=== PATIENT | male | born 1945 | race Caucasian/White ===

== ENCOUNTER 2021-06-13 16:27 | Inpatient (IN) ==
[2021-06-13] MEDS ORDERED: NS 0.9% 1000 ml BAG 1,000 ML IV ONE (17:21)
[2021-06-13 17:26] LABS: ABS Basophils 0.1 10^3/ul (0-0.2); ABS Eosinophils 0.1 10^3/ul (0-0.6); ABS Lymphocytes 1.1 10^3/ul (1.0-4.8); ABS Monocytes 0.7 10^3/ul (0-0.8); ABS Neutrophils 7.6 10^3/ul (1.5-7.7); Eosinophil % 1.5 %; Hematocrit 41 % (42-52); Lymphocyte % 11.5 %; Mean Corpuscular HGB Conc 34 g/dL (31-36); Mean Corpuscular Hemoglobin 31 pg (27-31); Mean Corpuscular Volume 92 fL (80-94); Mean Platelet Volume 8.1 fL (7.4-10.4); Platelet Count 196 10^3/uL (150-450); Red Blood Count 4.45 10^6 /uL (4.18-5.48); Red Cell Distribution Width 14 % (10-15); White Blood Count 9.6 10^3/uL (3.5-10.8)
[2021-06-13 17:42] LABS: ALT 15 U/L (7-52); Albumin 4.2 g/dL (3.2-5.2); Albumin/Globulin Ratio 1.7 (1-3); Alkaline Phosphatase 45 U/L (35-149); Blood Urea Nitrogen 12 mg/dL (6-24); CO2 Carbon Dioxide 29 mmol/L (22-32); Calcium 9.2 mg/dL (8.6-10.3); Chloride 103 mmol/L (101-111); EGFR African American 80.7 (>60); EGFR Non-African American 66.7 (>60); Globulin 2.5 g/dL (2-4); Glucose 172 mg/dL (70-100); Magnesium 1.9 mg/dL (1.9-2.7); Sodium 137 mmol/L (135-145); Total Protein 6.7 g/dL (6.4-8.9)
[2021-06-13 17:43] LABS: AST 22 U/L (13-39); Anion Gap 5 mmol/L (2-11); Potassium 4.4 mmol/L (3.5-5.0)
[2021-06-13 18:10] LABS: Troponin I 0.38 ng/mL (<0.03)
[2021-06-13] MEDS ORDERED: Metoprolol Tartrate 5 mg VIAL 5 ml VIAL (1 mg/ml) IV ONE (18:14)
[2021-06-13] MEDS ORDERED: nitroGLYCERIN DRIP 25,000 MCG/250 ML BTL IV ONE (18:15)
[2021-06-13 18:20] LABS: Rapid COVID-19 Molecular Undetected (Undetected)
[2021-06-13] MEDS ORDERED: Heparin DRIP 25,000 UNITS BAG 25,000 UNITS/500 ML BAG IV SCH (18:45)
[2021-06-13 18:46] LABS: INR 1.05 (0.86-1.15)
[2021-06-13] MEDS ORDERED: Heparin 5000 UNITS/ML 1 mL VIAL IV SCH (19:00)
[2021-06-13] MEDS ORDERED: Midazolam 5 mg/5 ml VIAL 1 mg/ml 5 ml VIAL (5 mg) ONE (19:10)
[2021-06-13] MEDS ORDERED: nitroGLYCERIN DRIP 25,000 MCG/250 ML BTL ONE (19:11)
[2021-06-13] MEDS ORDERED: Lidocaine 1% VIAL 10 MG/ML VIAL ONE (19:11)
[2021-06-13] MEDS ORDERED: Heparin 2 UNITS/ML 1000 mls 2,000 ML IV ONE (19:11)
[2021-06-13] MEDS ORDERED: fentaNYL 100 mcg/2 ml 50 MCG/ML VIAL ONE (19:11)
[2021-06-13] MEDS ORDERED: Iohexol 350 (CONTRAST) 200 ML MDV IV ONE ×2 (19:12→19:31)
[2021-06-13] MEDS ORDERED: niCARdipine 0.1MG/ML IVPREMIX 20 MG/200 ML BAG IV ONE (19:21)
[2021-06-13] MEDS ORDERED: Esmolol 10 MG/ML IVPREMIX 2,500 MG/250 ML BAG IV ONE (19:24)
[2021-06-13] MEDS ORDERED: Heparin 1,000 UNIT/ML 10 ml (10,000 UNITS) CATHLAB/DIALYSIS ONE ×2 (20:07→20:31)
[2021-06-13] MEDS ORDERED: Atropine 0.1 MG/ML 10 ml SYR (1 mg) ONE (21:02)
[2021-06-13] MEDS ORDERED: NS 0.9% 1000 ml BAG 1,000 ML IV SCH (21:30)
[2021-06-13 23:10] LABS: Creatine Kinase 552 U/L (10-223)
[2021-06-13 23:13] LABS: Troponin I 6.19 ng/mL (<0.03)
[2021-06-13 23:14] LABS: CKMB ng/mL 37.3 ng/mL (0.6-6.3)
[2021-06-13 23:41] LABS: Anion Gap 6 mmol/L (2-11); Blood Urea Nitrogen 10 mg/dL (6-24); CO2 Carbon Dioxide 28 mmol/L (22-32); Chloride 105 mmol/L (101-111); EGFR African American 80.7 (>60); EGFR Non-African American 66.7 (>60); Glucose 98 mg/dL (70-100); Potassium 4.2 mmol/L (3.5-5.0); Sodium 139 mmol/L (135-145)
[2021-06-14] MEDS ORDERED: Nitro 2% OINT (Nitroglycerin) 1 INCH/PAK TOPICAL ONE (01:35)
[2021-06-14 04:38] LABS: ABS Basophils 0.1 10^3/ul (0-0.2); ABS Eosinophils 0.2 10^3/ul (0-0.6); ABS Lymphocytes 1.7 10^3/ul (1.0-4.8); ABS Monocytes 0.9 10^3/ul (0-0.8); ABS Neutrophils 7.3 10^3/ul (1.5-7.7); Eosinophil % 1.6 %; Hematocrit 39 % (42-52); Hemoglobin 13.1 g/dL (14.0-18.0); Lymphocyte % 16.5 %; Mean Corpuscular HGB Conc 34 g/dL (31-36); Mean Corpuscular Hemoglobin 31 pg (27-31); Mean Corpuscular Volume 92 fL (80-94); Mean Platelet Volume 8.1 fL (7.4-10.4); Platelet Count 181 10^3/uL (150-450); Red Cell Distribution Width 13 % (10-15); White Blood Count 10.1 10^3/uL (3.5-10.8)
[2021-06-14 04:53] LABS: Cholesterol 139 mg/dL; Creatine Kinase 597 U/L (10-223); LDL Cholesterol 41 mg/dL; Triglycerides 333 mg/dL
[2021-06-14 04:58] LABS: CKMB ng/mL 41.4 ng/mL (0.6-6.3)
[2021-06-14 05:13] LABS: Troponin I 18.27 ng/mL (<0.03)
[2021-06-14] MEDS ORDERED: Nitro Patch/OINT Remove PATCH TOPICAL ONE (10:00)
[2021-06-14 10:18] LABS: Creatine Kinase 555 U/L (10-223)
[2021-06-14 10:24] LABS: CKMB ng/mL 36.8 ng/mL (0.6-6.3); Troponin I 20.45 ng/mL (<0.03)
[2021-06-15 06:06] LABS: CO2 Carbon Dioxide 23 mmol/L (22-32); Chloride 106 mmol/L (101-111); Sodium 134 mmol/L (135-145)
[2021-06-15 06:12] LABS: Blood Urea Nitrogen 11 mg/dL (6-24); EGFR African American 91.3 (>60); EGFR Non-African American 75.5 (>60); Glucose 112 mg/dL (70-100)
[2021-06-15 06:14] LABS: Anion Gap 5 mmol/L (2-11)
[2021-06-15 11:07] LABS: Phosphorus 2.6 mg/dL (2.5-5.0); Potassium Redraw 4.3 mmol/L (3.5-5.0)
[2021-06-15 11:09] LABS: Magnesium 1.9 mg/dL (1.9-2.7); Potassium 4.3 mmol/L (3.5-5.0)
[2021-06-15] MEDS ORDERED: Magnesium Sulfate IV 1GM/100ML 1 GM/100 ML BAG IV ONE (14:34)
[2021-06-16 04:24] LABS: ABS Basophils 0.1 10^3/ul (0-0.2); ABS Eosinophils 0.4 10^3/ul (0-0.6); ABS Lymphocytes 1.8 10^3/ul (1.0-4.8); ABS Monocytes 0.9 10^3/ul (0-0.8); Eosinophil % 3.9 %; Hematocrit 40 % (42-52); Hemoglobin 13.3 g/dL (14.0-18.0); Lymphocyte % 19.9 %; Mean Corpuscular HGB Conc 34 g/dL (31-36); Mean Corpuscular Hemoglobin 31 pg (27-31); Mean Corpuscular Volume 92 fL (80-94); Mean Platelet Volume 7.7 fL (7.4-10.4); Platelet Count 188 10^3/uL (150-450); Red Blood Count 4.28 10^6 /uL (4.18-5.48); Red Cell Distribution Width 14 % (10-15); White Blood Count 9.1 10^3/uL (3.5-10.8)
[2021-06-16 04:40] LABS: Calcium 9.4 mg/dL (8.6-10.3); EGFR African American 80.7 (>60); EGFR Non-African American 66.7 (>60); Potassium 4.1 mmol/L (3.5-5.0)
[2021-06-16] MEDS ORDERED: NS 0.9% 1000 ml BAG 1,000 ML IV SCH (06:00)
[2021-06-16] MEDS ORDERED: fentaNYL 100 mcg/2 ml 50 MCG/ML VIAL ONE ×2 (08:37→10:30)
[2021-06-16] MEDS ORDERED: Midazolam 5 mg/5 ml VIAL 1 mg/ml 5 ml VIAL (5 mg) ONE (08:37)
[2021-06-16] MEDS ORDERED: Lidocaine 1% VIAL 10 MG/ML VIAL ONE (08:38)
[2021-06-16] MEDS ORDERED: Iohexol 350 (CONTRAST) 200 ML MDV IV ONE ×2 (08:38→10:19)
[2021-06-16] MEDS ORDERED: Heparin 2 UNITS/ML 1000 mls 2,000 ML IV ONE (08:38)
[2021-06-16] MEDS ORDERED: nitroGLYCERIN DRIP 25,000 MCG/250 ML BTL ONE (08:38)
[2021-06-16] MEDS ORDERED: Heparin 1,000 UNIT/ML 10 ml (10,000 UNITS) CATHLAB/DIALYSIS ONE ×2 (08:38→09:34)
[2021-06-16] MEDS ORDERED: niCARdipine 0.1MG/ML IVPREMIX 20 MG/200 ML BAG IV ONE (08:39)
[2021-06-17 04:37] LABS: Calcium 9.6 mg/dL (8.6-10.3); EGFR African American 80.7 (>60); EGFR Non-African American 66.7 (>60); Potassium 3.8 mmol/L (3.5-5.0)
[2021-06-17] MEDS ORDERED: Potassium Chlor 20 meq TAB.ER PO ONE (04:46)
[2021-06-17 10:16] VITALS: BP 136/73
== END 2021-06-17 11:20 | disposition home or self-care (01) | DRG 247 ==
LOC: EDBD → ICU 16:27 → ED 16:27 → ICU 19:38 → OBSVTOIN 22:10 → SUATTDRO 22:10 → MEDTELE 06-14 14:50 → ICU 06-16 11:11
PROVIDERS: ADMIT Internal Medicine; ATTEND Internal Medicine